=== PATIENT | female | born 1980 | race Caucasian/White ===

== ENCOUNTER 2020-11-17 13:01 | Emergency (ER) | payer BC ==
[2020-11-17] MEDS ORDERED: Alum Hydroxide/Mag Hydroxide 30 ML, Lidocaine 2% 15 ML PO ONE ×2 (13:53)
[2020-11-17] MEDS ORDERED: Sodium Chloride 0.9% 1,000 ML IV ONE (14:01)
--- NOTE | 2020-11-17 14:21 | EDM.PDOC ---
ED HPI GENERAL MEDICAL PROBLEM - General Chief Complaint: Chest Pain Stated Complaint: BURNING IN CHEST Time Seen by Provider: 11/17/20 13:35 Source of Information: Reports: Patient History Limitations: Reports: No Limitations - History of Present Illness INITIAL COMMENTS - FREE TEXT/NARRATIVE: c/o burning upper chest x 1w nonspecific burn x 1w, both day and night, food and position and heat and BM do not make a difference taken no meds for it altho did take ibuprofen 3d ago for WALKER works at a [employer], did not miss work for [employer], lives with and 2 children who are not ill has not had COVID to her knowledge, did get J&J COVID vax on 10/30 MEDS: on Depo-Provera x 2.5y, no menses, no other meds no h/o dyspepsia, no abd pain, no n/v, no f/c/d burning is across upper chest, mainly on L and in upper 1/3rd of sternum, no change with activity ate pizza at 6p and drank water, nothing to eat or drink last evening, her daughter was babysitting and came home at 2a and woke pt up, she had the discomfort on awakening that lasted for about an hour until she fell back asleep, still there at 7a when she got up, ate 1/2 bagel and OJ for bfast discomfort has continued today, not severe, does tend to come and go pt was going to go clinic tomorrow but then became concerned when she had a red spot on her L lateral eye mid and left side chest Pain Score (Numeric/FACES): 3 - Related Data Allergies Allergy/AdvReac Type Severity Reaction Status Date / Time No Known Allergies Allergy Verified 01/03/16 05:48 Home Meds: Home Meds Ferrous Sulfate 325 mg PO WITHBREAKFAST #30 tablet 01/05/16 [Rx] Past Medical History - Past Health History Medical/Surgical History: Denies 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 Denies: Edema, Lightheadedness, Palpitations Endocrine: Reports: No Symptoms GI/Abdominal: Reports: No Symptoms : Reports: No Symptoms Musculoskeletal: Reports: No Symptoms Skin: Reports: No Symptoms Neurological: Reports: No Symptoms Psychiatric: Reports: No Symptoms Hematologic/Lymphatic: Reports: No Symptoms Immunologic: Reports: No Symptoms ED EXAM, GENERAL - Physical Exam Exam: See Below Exam Limited By: No Limitations General Appearance: Alert, WD/WN, No Apparent Distress Eye Exam: Bilateral Eye: Other (small subconj hematoma on left lateral of 5 x 4 mm, rest of orbit wnl) Ears: Hearing Grossly Normal Nose: Normal Inspection Throat/Mouth: Normal Voice, No Airway Compromise Head: Atraumatic, Normocephalic Neck: Normal Inspection, Supple, Non-Tender, Full Range of Motion Respiratory/Chest: No Respiratory Distress, Lungs Clear, Normal Breath Sounds, Chest Non-Tender Cardiovascular: Regular Rate, Rhythm, No Edema, No Murmur, Other (chest with no point tender) GI/Abdominal: Soft, Non-Tender Back Exam: Normal Inspection, Full Range of Motion Extremities: Normal Inspection, Non-Tender, No Pedal Edema Neurological: Alert, Oriented, CN II-XII Intact, Normal Cognition, Normal Gait, No Motor/Sensory Deficits Psychiatric: Normal Affect, Normal Mood Skin Exam: Warm, Dry, Intact, Normal Color, No Rash Lymphatic: No Adenopathy Course - Vital Signs Last Recorded V/S: Last Vital Signs Temp 37.0 C 11/17/20 13:01 Pulse 83 11/17/20 13:01 Resp 17 11/17/20 13:01 BP 113/76 11/17/20 13:01 Pulse Ox 99 11/17/20 13:01 - Orders/Labs/Meds Labs: Laboratory Tests 11/17/20 Range/Units 14:19 Troponin I < 4.0 L (4.0-60.3) pg/mL C-Reactive Protein 0.3 L (0.5-0.9) mg/dL Meds: Medications Discontinued Medications Generic Name Dose Route Start Last Admin Trade Name Freq PRN Reason Stop Dose Admin Al Hydroxide/Mg Hydroxide 30 0 ml 11/17/20 13:53 11/17/20 14:01 ml/ Lidocaine HCl 15 ml PO 11/17/20 13:54 45 ml ONETIME ONE Administration Sodium Chloride 1,000 mls @ 999 mls/hr 11/17/20 14:01 Normal Saline IV 11/17/20 15:01 .BOLUS ONE - Re-Assessments/Exams Free Text/Narrative Re-Assessment/Exam: 11/17/20 15:11 GI cocktail seemed to help as burning was gone at time of d/c no CV concerns based on sxs or EKG or trop that were neg CRP done as pt may have had a minor reaction to the J&J vax altho this was neg all questions answered Departure - Departure Time of Disposition: 15:04 Disposition: Home, Self-Care 01 Condition: Good Clinical Impression: GERD (gastroesophageal reflux disease), Subconjunctival hemorrhage of left eye - Discharge Information *PRESCRIPTION DRUG MONITORING PROGRAM REVIEWED*: Not Applicable *COPY OF PRESCRIPTION DRUG MONITORING REPORT IN PATIENT ELLIS: Not Applicable Instructions: Gastroesophageal Reflux Disease, Adult, Subconjunctival Hemorrhage Forms: ED Department Discharge Additional Instructions: For burning, take liquid antacid 30 ml every 4 hours as needed, including in the middle of the night. For burning (to decrease acid production), may also take omeprazole 20 mg 1 capsule daily for 10 days, which can be obtained over the counter. For inflammation, take ibuprofen 200 mg 3 tabs every 6 hours as needed. It is likely that acid reflux is causing your symptoms although it is possible that the COVID vaccine may be a factor as well. The subconjunctival hemorrhage will resolve on its own. It is not infectious. Sepsis Event Note (ED) - Evaluation Sepsis Screening Result: No Definite Risk - Focused Exam Vital Signs: Vital Signs Temp Pulse Resp BP Pulse Ox 11/17/20 13:01 37.0 C 83 17 113/76 99
[2020-11-17 15:31] VITALS: BP 117/76; PULSE 82
== END 2020-11-17 15:23 | disposition home or self-care (01) ==
LOC: FB.ED 13:01
DX: K21.9 Gastro-esophageal reflux disease without esophagitis (principal); S05.12XA Contusion of eyeball and orbital tissues, left eye, initial encounter; H11.32 Conjunctival hemorrhage, left eye; X58.XXXA Exposure to other specified factors, initial encounter
CPT/HCPCS: 36415; 84484; 86140; 93005; 99285; A9270; 99282

== ENCOUNTER 2025-02-21 06:39 | Day surgery (SDC) | payer BC ==
[2025-02-21] MEDS ORDERED: Midazolam 1 MG/ML 2 ML SDV IV ONE (06:40)
[2025-02-21] MEDS ORDERED: Propofol 200 MG/20 ML SDV IV ONE (06:40)
[2025-02-21] MEDS ORDERED: Sodium Chloride 0.9% 10 ML Syringe FLUSH PRN (06:45)
[2025-02-21] MEDS: Lactated Ringers 1,000 ML IV SCH (07:26)
[2025-02-21 09:00] VITALS: BP 120/75; PULSE 71
== END 2025-02-21 09:09 | disposition home or self-care (01) ==
LOC: FB.SDS 06:39
PROVIDERS: ATTEND Surgery
DX: Z12.11 Encounter for screening for malignant neoplasm of colon (principal); D12.1 Benign neoplasm of appendix; F41.9 Anxiety disorder, unspecified; Z91.09 Other allergy status, other than to drugs and biological substances; Z79.899 Other long term (current) drug therapy
CPT/HCPCS: 00811; 88305; A9270-GY; J2250; J2704; J7120